=== PATIENT | female | born 1960 | race African-American/Black ===

== ENCOUNTER → 2017-01-09 | Outpatient (CLI) | payer BC ==
--- NOTE | ~2017-01-09 | MY29 ---
[facility] A Service of [facility] [place] RADIOLOGY TEXT RESULTS PATIENT: ALYCE PRASAD LOCATION: [facility] : 64 UNIT #: [id number] AGE: [address]: Steff Power MD SEX: F ORDER DR: [id number] [facility] [address]. [place], [place] [address] [id number] O MR#: [id number] Acc #: [id number] NAME: ALYCE PRASAD : 1960 SEX: F STUDY DATE/TIME: 01/09/2017 11:48 UNIT: [facility] ROOM: STUDY DESCRIPTION: MY HAY SCREENING W/ CAD BILAT Attending Physician: Steff Power M.D. Referring Physician: Steff Power M.D. Ordering Physician: Steff Power M.D. Primary Care Physician: Steff Power M.D. MEDICAL IMAGING REPORT This report is preliminary unless electronic signature is present EXAM Digital screening mammogram, 01/09/2017. HISTORY A 56-year-old woman, no risk elevation. Annual screening. COMPARISON None available. The patient indicates previous mammograms at [facility]. FINDINGS Digital imaging of each breast was completed utilizing a two-view examination of each breast in craniocaudal and mediolateral-oblique projections. Review and interpretation of digital mammograms include a second review in conjunction with FDA-approved CAD device. There is a normal parenchymal presentation bilaterally consistent with the patient's age. There are no breast masses imaged and no parenchymal asymmetry is visualized. There are no suspicious microcalcifications and I see no focal architectural disturbance. IMPRESSION Negative screening digital mammogram. One-year followup recommended. Patients over the age of 40 are entered into a reminder system with target due date for the next mammogram. A result letter will also be sent to the patient. BIRADS: 1 Negative Dictated by... [facility] A Service of [facility] [place] [place] RADIOLOGY TEXT RESULTS PATIENT: ALYCE PRASAD LOCATION: [facility] : 64 UNIT #: [id number] AGE: [address]: Steff Power MD SEX: F ORDER DR: Shravan Stock M.D. THIS IS AN ELECTRONICALLY VERIFIED REPORT Shravan Stock M.D. at 01/10/2017 1:00 PM Charles TD: 01/10/2017 12:23 JOB #: [id number] MEDICAL IMAGING REPORT Page 1 of 1 COPY
== END | disposition home or self-care (01) ==
LOC: CWCC 11:30
DX: Z12.31 Encounter for screening mammogram for malignant neoplasm of breast (principal)
CPT/HCPCS: G0202